=== PATIENT | female | born 1995 | race Hispanic/Latino ===

== ENCOUNTER 2017-10-16 22:20 | Outpatient (CLI) | payer MEDICAID ==
[2017-10-16 22:39] VITALS: BP 118/74
[2017-10-16] MEDS ORDERED: LACTATED RINGERS 1,000 ML IV SCH (23:00)
--- NOTE | 2017-10-17 00:45 | Ultrasound Report ---
FINAL REPORT PROCEDURE: US OB LIMITED TECHNIQUE: Real-time limited sonographic examination was performed for evaluation of presentation, amniotic fluid volume for each fetus with image documentation (1 or more fetuses). CPT 01083 HISTORY: decreased movement; Low AMADOR COMPARISON: No prior studies are available for comparison. FINDINGS: There is a single fetus in a vertex presentation. A 4 quadrant amniotic fluid volume measures 9.6 centimeters. heart rate 146 beats per minute. Further imaging or measurements are obtained on this study. IMPRESSION: Single fetus in a vertex presentation. A normal amount of amniotic fluid is present.
== END 2017-10-17 00:23 | disposition home or self-care (01) ==
LOC: TRG 22:20
PROVIDERS: ATTEND Obstetrics & Gynecology
DX: O36.8130 Decreased fetal movements, third trimester, not applicable or unspecified (principal); Z3A.39 39 weeks gestation of pregnancy
CPT/HCPCS: 59025; 76815; 96360; J7120

== ENCOUNTER 2017-10-28 00:46 | Outpatient (CLI) | payer MEDICAID ==
[2017-10-28 01:39] VITALS: BP 123/74
[2017-10-28] MEDS ORDERED: VISTARIL PO PRN (01:51)
== END 2017-10-28 02:40 | disposition home or self-care (01) ==
LOC: TRG 00:46
PROVIDERS: ATTEND Obstetrics & Gynecology
DX: O47.1 False labor at or after 37 completed weeks of gestation (principal); Z3A.39 39 weeks gestation of pregnancy
CPT/HCPCS: 59025; Q0177

== ENCOUNTER 2017-11-06 02:00 | Inpatient (IN) | payer MEDICAID ==
[2017-11-06] MEDS ORDERED: SUBLIMAZE ONE (02:40)
[2017-11-06] MEDS ORDERED: LACTATED RINGERS 2,000 ML ONE (02:57)
[2017-11-06] MEDS ORDERED: MINERAL OIL ONE (03:22)
[2017-11-06] MEDS ORDERED: XYLOCAINE 2% INFILTRATI ONE ×2 (03:22→03:37)
[2017-11-06] MEDS ORDERED: PITOCin/NS 20 UNIT/1000ML DRIP 20,000 MILLIUNITS/1,000 ML BAG IV ONE ×2 (03:22→05:37)
--- NOTE | 2017-11-06 03:36 | Procedure Note ---
OB Delivery Note - Delivery Date of Delivery: 11/06/17 Surgeon: MACARIO STEVE Estimated blood loss: 200cc - Vaginal Delivery presentation: vertex Delivery position: OA Intrapartum events: none Delivery induction: none Delivery augmentation: rupture of membranes Delivery monitor: external FHT, external uterine Route of delivery: Delivery placenta: spontaneous Delivery cord: 3 umbilical vessels Episiotomy: none Delivery laceration: none - Infant A at 1 minute: 8 (7lbs 12oz) at 5 minutes: 9 Infant Gender: Male
--- NOTE | 2017-11-06 03:36 | History and Physical Report ---
History of Present Illness Date of examination: 11/06/17 Date of admission: 11/06/17 02:20 Chief complaint: active labor History of present illness: presents in active labor EDC Calculations LMP: 10/31/2017 EDC Confirmation: 10/31/2017 Gestational Age: 16 3/7 weeks Past History : 1 Para: 0 Past Medical History: Negative Past Medical History heavy periods with some anemia prior to OCP Past Surgical History: negative Past Medical History Anesthesia Complications: negative Anemia: negative Autoimmune Disorder: negative Bleeding Disorder: negative Blood Transfusions: negative Breast Disease: negative Diabetes: negative Heart Disease: negative Hypertension: negative Hepatitis/Liver Disease: negative Kidney Disease/UTI: negative Neurologic/Epilepsy/Migraines: negative Phlebitis/Varicosities: negative Psychiatric: negative Pulmonary Disease/Asthma: negative Thyroid Disease: negative Hospitalizations: negative Surgery (Non-protective service specialist): negative Abnormal PAP: negative CAT Exposure: negative Infertility: negative Uterine Anomaly: negative Uterine Surgery (not C/S): negative Other Gynecologic Problems: negative Infection History Hx of STD: none HIV Risk Eval: low risk Hepatitis B Risk Eval: low risk Personal hx. of genital herpes: no Partner hx. of genital herpes: no Rash, Viral, or Febrile illness since last LMP? no Varicella/Chicken Pox Status: Immunized TB Risk: no Genetic History Congenital Heart Defect: Mom: no Dad: no Jose Guadalupe Disease: Mom: no Dad: no Thalassemia Mom: no Dad: no Neural Tube Defect Mom: no Dad: no Down's Syndrome Mom: no Dad: no Krishna-Sachs Mom: no Dad: no Sickle Cell Disease/Trait Mom: no Dad: no Hemophilia Mom: no Dad: no Muscular Dystrophy Mom: no Dad: no Cystic Fibrosis Mom: no Dad: no Ange Chorea Mom: no Dad: no Mental Retardation Mom: no Dad: no Fragile X Mom: no Dad: no Other Genetic/Chromosomal Disorder Mom: no Dad: no Child w/other defect Mom: no Dad: no Enviromental Exposures Xray Exposure: no Medication, drug, or alcohol use since LMP: no Chemical/Other Exposure: no Exposure to Cat Liter: no Hx of Parvovirus (Fifth Disease): no Active Medications (reviewed today): None Current Allergies (reviewed today): No known allergies Past History Past Medical History: no pertinent history Past Surgical History: no surgical history Social history: no significant social history - Obstetrical History Expected Date of Delivery: 10/31/17 Actual Gestation: 40 Week(s) 6 Day(s) : 1 Medications and Allergies Allergies Allergy/AdvReac Type Severity Reaction Status Date / Time No Known Allergies Allergy Verified 10/16/17 22:41 Home Medications Medication Instructions Recorded Confirmed Last Taken Type Gummies 1 tab PO QDAY 10/16/17 10/16/17 10/16/17 History - Vital Signs Vital signs: Vital Signs Pulse BP 56 L 89/51 11/06/17 02:49 11/06/17 02:49 Temp Pulse Resp BP Pulse Ox 74 104/51 11/06/17 03:35 11/06/17 03:35 - Physical Exam Breasts: Positive: tender Cardiovascular: Normal S1 Lungs: Positive: Clear to auscultation Abdomen: Positive: normal appearance, soft. Negative: distention, tenderness, guarding Genitourinary (Female): Positive: normal external genitalia, normal perenium - Obstetrical FHR: category 1 Cervical Dilatation: 10 Cervical Effacement Percentage: 100 station: 1+ Results All other labs normal. Assessment and Plan - Patient Problems (1) 40 weeks gestation of Current Visit: Yes Status: Acute (2) Active labor at term Current Visit: Yes Status: Acute Plan to address problem: -ADMIT -PREPARE FOR VAGINA DELIVERY
[2017-11-06] MEDS ORDERED: BRETHINE SUB-Q PRN (03:37)
[2017-11-06] MEDS ORDERED: ePHEDrine SULFATE IV PRN (03:37)
[2017-11-06] MEDS ORDERED: SUBLIMAZE IV PRN (03:37)
[2017-11-06] MEDS ORDERED: MINERAL OIL PO PRN (03:37)
[2017-11-06] MEDS ORDERED: BRETHINE IVP PRN (03:37)
[2017-11-06] MEDS ORDERED: BENADRYL PO PRN (03:40)
[2017-11-06] MEDS ORDERED: DULCOLAX PR PRN (03:40)
[2017-11-06] MEDS ORDERED: MILK OF MAGNESIA PO PRN (03:40)
[2017-11-06] MEDS ORDERED: TYLENOL PO PRN (03:40)
[2017-11-06] MEDS ORDERED: PHENERGAN PO PRN (03:40)
[2017-11-06] MEDS ORDERED: TUCKS PAD TP PRN (03:40)
[2017-11-06] MEDS ORDERED: PHENERGAN PR PRN (03:40)
[2017-11-06] MEDS ORDERED: ZOFRAN IV PRN (03:40)
[2017-11-06] MEDS ORDERED: LANSINOH TP PRN (03:40)
[2017-11-06] MEDS ORDERED: PITOCin/NS 30 UNIT/500ML 30 UNITS/500 ML BAG IV SCH (04:00)
[2017-11-06] MEDS ORDERED: PITOCin/NS 20 UNIT/1000ML DRIP 20 UNITS/1,000 ML BAG IV SCH (04:00)
[2017-11-06] MEDS ORDERED: LACTATED RINGERS 1,000 ML IV SCH (04:00)
[2017-11-06] MEDS ORDERED: SODIUM CHLORIDE FLUSH SYRINGE 10 ML IV NR (04:00)
[2017-11-06 04:16] LABS: Hemoglobin 10.2 gm/dl (10.1-14.3); Mean Corpuscular HGB Conc 33 % (30-34); Mean Corpuscular Volume 71 fl (79-97); Platelet Count 234 K/mm3 (140-440); Red Blood Count 4.38 M/mm3 (3.65-5.03); Red Cell Distribution Width 15.7 % (13.2-15.2)
[2017-11-06 04:31] LABS: Mean Corpuscular Hemoglobin 23 pg (28-32)
[2017-11-06] MEDS: MOTRIN PO SCH ×2 (05:50→18:07)
[2017-11-06 17:06] LABS: Hematocrit 26.5 % (30.3-42.9); Hemoglobin 8.4 gm/dl (10.1-14.3)
[2017-11-07] MEDS: MOTRIN PO SCH ×3 (00:29→12:19)
[2017-11-07] MEDS ORDERED: BOOSTRIX IM ONE (06:00)
--- NOTE | 2017-11-07 09:58 | Discharge Summary ---
Providers - Providers Date of Admission: 11/06/17 02:20 Date of discharge: 11/07/17 (desires d/c home today) Attending physician: MACARIO STEVE Primary care physician: MACARIO STEVE Hospitalization Reason for admission: Labor Condition: Good Pertinent studies: post delivery H&H 8.4/26.5 (asymptomatic) Procedures: vaginal Hospital course: uncomplicated and course Disposition: - TO HOME OR SELFCARE - Discharge Diagnoses (1) (spontaneous vaginal delivery) Status: Acute (2) Anemia due to blood loss, acute Status: Acute Core Measure Documentation - Palliative Care Palliative Care/ Comfort Measures: Not Applicable - Core Measures Any of the following diagnoses?: none Exam - Constitutional Vitals: Temp Pulse Resp BP Pulse Ox 98.5 F 72 18 109/66 92 11/06/17 21:08 11/06/17 21:08 11/06/17 21:08 11/06/17 21:08 11/06/17 21:08 General appearance: Present: no acute distress, well-nourished - EENT Eyes: Present: PERRL ENT: hearing intact, clear oral mucosa - Neck Neck: Present: supple, normal ROM - Respiratory Respiratory effort: normal Respiratory: bilateral: CTA - Cardiovascular Heart Sounds: Present: S1 & S2. Absent: rub, click - Extremities Extremities: pulses symmetrical, No edema Peripheral Pulses: within normal limits - Abdominal General gastrointestinal: Present: soft, non-tender, non-distended, normal bowel sounds Female genitourinary: Present: normal - Integumentary Integumentary: Present: clear, warm, dry - Musculoskeletal Musculoskeletal: gait normal, strength equal bilaterally - Psychiatric Psychiatric: appropriate mood/affect, intact judgment & insight - Neurologic Neurologic: CNII-XII intact, moves all extremities - Additional findings Additional findings: Lochia scant, fundus firm, , VSSAF. Asymptomatic for anemia. Plan Activity: no restrictions Diet: regular Follow up with: MACARIO STEVE MD [Primary Care Provider] - 6 Weeks (Congratulations! Please call [phone] to schedule your visit in 6 weeks. Please call for any questions or concerns.) Prescriptions: Ferrous Sulfate [Feosol 325 MG tab] 325 mg PO BID #90 tablet Ibuprofen [Motrin 800 MG tab] 800 mg PO Q8HR PRN #30 tablet PRN Reason: Pain Lidocain2.5%/Prilocai2.5% [Emla] 5 gm TP ONCE PRN #1 tube PRN Reason: Pain
[2017-11-07 10:23] VITALS: BP 114/75
== END 2017-11-07 17:14 | disposition home or self-care (01) | DRG 775 ==
LOC: TRG 02:00 → LD 02:20 → OB 05:22
PROVIDERS: ADMIT Obstetrics & Gynecology; ATTEND Obstetrics & Gynecology
PROC: 10E0XZZ Delivery of Products of Conception, External Approach (ICD-10-PCS; principal; 2017-11-06)
DX: O99.02 Anemia complicating childbirth (principal); Z3A.40 40 weeks gestation of pregnancy; Z37.0 Single live birth; D62 Acute posthemorrhagic anemia
CPT/HCPCS: 36415; 85014; 85018; 85027; 86592; 86850; 86900; 86901; 90471; 90715; J2590; J3010; J7120